=== PATIENT | male | born 1965 | race African-American/Black ===

== ENCOUNTER 2019-07-14 11:14 | Emergency (ER) | payer OTHER ==
--- NOTE | 2019-07-14 11:50 | CT ---
CT HEAD WITHOUT IV CONTRAST COMPARISON: 9 HISTORY: Hypertension and headache. TECHNIQUE: Axial CT imaging at 5 mm intervals from vertex through skull base without contrast FINDINGS: There is an area of encephalomalacia seen within the left parietal lobe as well as a linear area of e ncephalomalacia seen in the left anterior frontal lobe likely due to remote areas of infarction versus other insult. There are a few minimal patchy densities seen in the subcortical white matter on the right likely reflective of chronic small vessel ischemic changes. There is no evidence of an acute cortical infarction, hemorrhage, mass effect, or midline shift. The ventricular system is deidre l in size, shape, and position. Visualized paranasal sinuses are clear. Osseous structures appear intact. IMPRESSION: 1. No acute intracranial abnormality is demonstrated. 2. There is encephalomalacia in the left cerebral hemisphere likely due to remote areas of infarction versus other insult. 3. Findings likely reflective of chronic small vessel ischemic changes.
[2019-07-14 12:48] LABS: #Lymphocytes 1.8 thou/uL (1.20-3.40); #Monocytes 0.4 thou/uL (0.11-0.59); #Neutrophils 5.1 thou/uL (1.40-6.50); %Basophils 0.1 % (0.0-1.0); %Eosinophils 0.1 % (0.0-10.0); %Lymphocytes 24.2 % (21.0-51.0); %Monocytes 5.6 % (0.0-10.0); Hemoglobin 15.2 g/dL (14.0-18.0); Mean Corpuscular HGB CONC 32.5 g/dL (32.0-36.0); Mean Corpuscular Hemoglobin 26.5 pg (27.0-31.0); Mean Corpuscular Volume 81.4 fL (78.0-98.0); Mean Platelet Volume 9.5 fL (7.4-10.4); Platelet Count 266 thou/uL (130-400); RBC Distribution Width 13.6 % (11.5-14.5); Red Blood Cell (RBC) Count 5.74 mill/uL (4.70-6.10); White Blood Cell (WBC) Count 7.3 thou/uL (4.8-10.8)
[2019-07-14 12:53] LABS: PTT 31.3 SEC (22.9-36.1); Prothrombin Time 13.6 SEC (12.0-14.7)
[2019-07-14 13:04] LABS: ALT (SGPT) 72 U/L (8-55); AST (SGOT) 53 U/L (5-34); Acetaminophen Less than 6.0 mcg/mL (10.0-30.0); Albumin 4.4 g/dL (3.5-5.0); Alcohol Less than 10 mg/dL (Less than 10); Alkaline Phosphatase 95 U/L (40-110); Anion Gap 17 mmol/L (10-20); BUN (Urea Nitrogen) 19 mg/dL (8.4-25.7); Bilirubin, Total 0.7 mg/dL (0.2-1.2); Calc. Creatinine Clearance 0 mL/min (70-130); Carbon Dioxide 24 mmol/L (22-29); Chloride 102 mmol/L (98-107); Estimated GFR-MDRD Greater than 90; Globulin 3.8 g/dL (2.4-3.5); Glucose 209 mg/dL (70-105); Potassium 4.7 mmol/L (3.5-5.1); Protein, Total 8.2 g/dL (6.0-8.3); Salicylate Less than 8.0 mg/dL (15.0-30.0); Sodium 138 mmol/L (136-145)
--- NOTE | 2019-07-14 13:20 | CT ---
EXAM: CT angiogram of the head including 3-D rendering: HISTORY: Slurred speech history of prior infarcts COMPARISON: None FINDINGS: Noncontrast study is compared to a prior [address] without contrast which shows a stable left cere bral hemisphere encephalomalacic infarct. There is adequate opacification of the intracranial arteries. Visualized vertebral and basilar arteries: Unremarkable. Right and left intracranial internal carotid arteries: Unremarkable. Right and left Anterior and posterior cerebral arteries: Unremarkable. Right and left middle cerebral arteries: Somewhat small poorly defined anterior temporal branch of th e right middle cerebral artery M2 segment possibly related to some stenosis but without overt complete occlusion. No evidence for an M1 segment occlusion. No evidence for intracranial aneurysm. IMPRESSION: No evidence for an M1 segment occlusion. Somewhat narrowed poorly defined anterior temporal branch of the right middle cerebral artery M2 segment possibly related to some stenosis. EXAM: CT angiogram of the neck including 3-D rendering: HISTORY: Altered mental status slurred speech COMPARISON: None FINDINGS: There is adequate opacification of the extracranial arterial tree. The origin of the right vertebral artery appears to be occluded. There is some retrograde filling of the upper mid right vertebral artery. Right common, internal, and external carotid arteries:No significant right-sided carotid artery steno sis. Left common, internal, and external carotid arteries:Complete occlusion of the origin of the left int ernal carotid artery. Right and left vertebral arteries and basilar artery:No significant stenosis or occlusion. Soft tissue neck demonstrates no evidence for significant adenopathy, mass, or abnormal fluid collect ion. 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 Findings discussed with the ordering physician in the emergency room at 1:15 PM CODE CR
[2019-07-14 13:51] LABS: Amphetamine Not Detected (NotDetected); Barbiturates Screen Not Detected (NotDetected); Benzodiazepine Screen Not Detected (NotDetected); Cocaine Metabolite Screen Not Detected (NotDetected); Medtox Control Line Valid? VALID (VALID); Medtox Reader # READER 4; Methadone Not Detected (NotDetected); Methamphetamine Not Detected (NotDetected); Opiate Screen Not Detected (NotDetected); Oxycodone Screen Not Detected (NotDetected); Phencyclidine (PCP) Not Detected (NotDetected); THC/Cannabinoid Screen Not Detected (NotDetected); Tricyclic Screen Not Detected (NotDetected)
[2019-07-14] MEDS ORDERED: Aspirin 325 MG TAB ONE (14:05)
[2019-07-14] MEDS ORDERED: Iopamidol-370 76% 500 ML 1 ML ONE (16:41)
== END 2019-07-14 17:01 | disposition short-term general hospital (02) ==
LOC: EEVIPCON 11:14 → ERS 11:14
DX: I67.9 Cerebrovascular disease, unspecified (principal); R47.1 Dysarthria and anarthria; I10 Essential (primary) hypertension; E11.9 Type 2 diabetes mellitus without complications
CPT/HCPCS: 36415; 36416; 70450; 70496; 70498; 80053; 80306; 80307; 82140; 84484; 85025; 85610; 85730; 93005; 94760; Q9967